=== PATIENT | male | born 1945 | race Caucasian/White ===

== ENCOUNTER → 2022-11-01 11:14 | Outpatient (BNVA) | payer MEDICARE, SELFPAY | PROVIDERS: PCP Internal Medicine; Referring Provider Internal Medicine; Visit Provider Urology | DX: R39.15 Urgency of urination (principal); R35.1 Nocturia | CPT/HCPCS: 99213 ==

== ENCOUNTER → 2023-11-06 13:53 | Outpatient (BNVA) | payer MEDICARE, SELFPAY | PROVIDERS: PCP Internal Medicine; Visit Provider Nurse Practitioner Gerontology | DX: R35.0 Frequency of micturition (principal); R35.1 Nocturia | CPT/HCPCS: 51798; 99213 ==

== ENCOUNTER 2023-12-06 15:08 | Outpatient (REF) | payer MEDICARE, SELFPAY ==
--- NOTE | 2023-12-06 14:10 | SKI_PTH ---
PATIENT: Antonio Cannon LOC: LAST U#:[id number] AGE/SX: 78/M ROOM: RE12/06/[address]: KHADIJAH Price : 1945 BED: DIS: 12/06/2023 SPEC #: [id number] RECD: 12/09/23 12:37 STATUS: KENYA REQ #: [id number] ALPHONSO: 12/06/23 14:[address]: Ronnie Mcleod DEPT: Surgical Specimen RECD BY: Emmy Spivey ENTERED: 12/09/23 12:38 SP TYPE: EDWARD DÍAZ DR: Skyler Jaime MD Tissues: 1 - SKIN BIOPSY(SHAVE/PUNCH) Procedures: IMMUNOPEROXIDASE STAIN SKIN LEVEL 4 SPECIAL STAIN 1 Comments: [id number]
== END 2023-12-06 15:09 | disposition home or self-care (01) ==
LOC: LBN 15:08
PROVIDERS: PCP Family Medicine; Visit Provider Physician Assistant
DX: L57.0 Actinic keratosis (principal); D49.2 Neoplasm of unspecified behavior of bone, soft tissue, and skin; Z85.828 Personal history of other malignant neoplasm of skin
CPT/HCPCS: 88305; 88312; 88361

== ENCOUNTER 2024-01-17 22:46 | Outpatient (REF) | payer MEDICARE, SELFPAY ==
--- NOTE | 2024-01-17 13:15 | SKI_PTH ---
PATIENT: Antonio Cannon LOC: LAST U#:[id number] AGE/SX: 78/M ROOM: RE01/17/[address]: KHADIJAH Price : 1945 BED: DIS: 01/17/2024 SPEC #: [id number] RECD: 01/20/24 13:00 STATUS: KENYA REDavid #: [id number] ALPHONSO: 01/17/24 13:[address]: Ronnie Mcleod DEPT: Surgical Specimen RECD BY: Emmy Spivey ENTERED: 01/20/24 13:02 SP TYPE: EDWARD DÍAZ DR: Skyler Jaime MD Tissues: 1 - SKIN BIOPSY(SHAVE/PUNCH) 2 - LIP BIOPSY/RESECTION Procedures: GROSS AND MICRO LEVEL 4 SKIN LEVEL 4 Comments: [id number]
== END 2024-01-17 22:47 | disposition home or self-care (01) ==
LOC: LBN 22:46
PROVIDERS: PCP Family Medicine; Visit Provider Physician Assistant
DX: L10.89 Other pemphigus (principal); L30.8 Other specified dermatitis
CPT/HCPCS: 88305